=== PATIENT | male | born 1995 | race Caucasian/White ===

== ENCOUNTER 2019-06-25 00:40 | Emergency (ER) | payer BC, OTHER ==
[2019-06-25] MEDS ORDERED: Tetan/Diph/Pertus SYR(Tdap)* 0.5 ML SYR(BOOSTRIX) use SYR contains LATEX IM ONE (01:23)
--- NOTE | 2019-06-25 01:23 | ED ---
Laceration/Wound HPI - HPI Summary HPI Summary: 24 yo male presents with LEFT foot laceration. He tells me that this evening he broke a glass and stepped on a piece sustaining a laceration to his left lateral foot. Bandaged the area and came to the ED. Unsure date of last tetanus - History of Current Complaint Stated Complaint: L FOOT LAC PER PT Time Seen by Provider: 06/25/19 01:23 Hx Obtained From: Patient Onset Severity: Moderate Current Severity: Mild Pain Intensity: 3 Pain Scale Used: 0-10 Numeric - Allergy/Home Medications Allergies/Adverse Reactions: Allergies Allergy/AdvReac Type Severity Reaction Status Date / Time pseudoephedrine Allergy Insomnia Verified 06/25/19 00:46 [From Sudafed] PMH/Surg Hx/FS Hx/Imm Hx Endocrine/Hematology History: Denies: Hx Diabetes Cardiovascular History: Denies: Hx Pacemaker/ICD Sensory History: Denies: Hx Hearing Aid Psychiatric History: Denies: Hx Panic Disorder Infectious Disease History: No Infectious Disease History: Denies: Traveled Outside the [place] in Last 30 Days Review of Systems Constitutional: Negative Cardiovascular: Negative Respiratory: Negative Musculoskeletal: Negative Skin: Other - LAceration left foot Neurological: Negative Psychological: Normal All Other Systems Reviewed And Are Negative: No Physical Exam - Summary Physical Exam Summary: GENERAL: NAD. WDWN. No pain distress. SKIN: LEFT FOOT: Lateral aspect at the lateral 5th digit there is a 1.0cm circumferential laceration through the dermis. No tendon or bony involvement. Clean appearing. FROM CHEST: No accessory muscle use. Breathing comfortably and in no distress. CV: Pulses intact. Cap refill <2seconds NEURO: Alert. PSYCH: Age appropriate behavior. Triage Information Reviewed: Yes Vital Signs On Initial Exam: Initial Vitals Temp Pulse Resp BP Pulse Ox 98.2 F 67 16 141/67 98 06/25/19 00:44 06/25/19 00:44 06/25/19 00:44 06/25/19 00:44 06/25/19 00:44 Vital Signs Reviewed: Yes Procedures - Sedation Patient Received Moderate/Deep Sedation with Procedure: No - Laceration/Wound Repair 1 Location: lower extremity Description: Linear Anesthesia: 1.0% Length, Depth and Shape: 1.0cm Laceration/Wound Explored: clean Closure: Single Layer Suture Type: Prolene - 4-0 Number of Sutures: 5 Layer Closure?: No Sterile Dressing Applied?: Yes Diagnostics - Vital Signs Vital Signs Temp Pulse Resp BP Pulse Ox 06/25/19 00:44 98.2 F 67 16 141/67 98 - Laboratory Lab Statement: Any lab studies that have been ordered have been reviewed, and results considered in the medical decision making process. Laceration Repair Course/Dx - Course Course Of Treatment: The procedure was explained to the pt and all questions were answered. A time out was performed, witnessed, and signed. The area was irrigated with 100mL sterile saline. 1mL of 2% lidocaine without epi was administered and good anesthetization was achieved. In the usual sterile fashion , FIVE 4-0 prolene interrupted sutures were placed. Homeostasis achieved. The wound was bandaged with telfa . Pt tolerated procedure well. tdap updated today - Clinical Impression Provider Diagnoses: Laceration of left foot Discharge ED - Sign-Out/Discharge Documenting (check all that apply): Patient Departure - Discharge Plan Condition: Stable Disposition: HOME Patient Education Materials: Care For Your Stitches (ED), Laceration (ED) Referrals: No Primary Care Phys,NOPCP [Primary Care Provider] - Additional Instructions: 1) Please keep the area bandage, clean, dry, and intact for the next 24- 48hours. Then change the bandage daily until sutures are removed. 2) If you develop a fever, colored or thick discharge, increased pain or swelling - please call your PCP or return for a wound check. 3) Please return in 10-12 days to have your FIVE sutures removed. - Billing Disposition and Condition Condition: STABLE Disposition: Home
[2019-06-25] MEDS ORDERED: Lidocaine 1% MPF* 2 ML VIAL INJ ONE (01:29)
[2019-06-25] MEDS ORDERED: Lidocaine 1% MPF ** 5 ML VIAL ONE (01:32)
[2019-06-25 02:41] VITALS: BP 135/75
== END 2019-06-25 02:40 | disposition home or self-care (01) ==
LOC: ED 00:40
DX: S91.312A Laceration without foreign body, left foot, initial encounter (principal); Z23 Encounter for immunization; W25.XXXA Contact with sharp glass, initial encounter; Y92.9 Unspecified place or not applicable; Z88.8 Allergy status to other drugs, medicaments and biological substances
CPT/HCPCS: 12001; 90471; 90715; 99282